=== PATIENT | female | born 1990 | race Caucasian/White ===

== ENCOUNTER 2017-09-25 13:22 | Outpatient (CLI) | payer MEDICAID | END 2017-09-25 23:59 | disposition home or self-care (01) | LOC: RAD 13:22 | PROVIDERS: ATTEND Family Medicine | DX: G40.219 Localization-related (focal) (partial) symptomatic epilepsy and epileptic syndromes with complex partial seizures, intractable, without status epilepticus (principal); F17.200 Nicotine dependence, unspecified, uncomplicated | CPT/HCPCS: 95819 ==